=== PATIENT | female | born 1950 | race Caucasian/White ===

== ENCOUNTER 2017-07-30 08:39 | Emergency (ER) | payer MEDICARE, MEDICAID ==
[~2017-07-30] VITALS: Ht 162.6 cm; Wt 110.0 kg
[~2017-07-30 08:39] MED LIST: ACTOS30 MG OR; ALBUTEROL90 MCG IN; ASPIR-8181 MG OR; CELEBREX200 MG OR; CIPROFLOXACN500 MG PO; DECO OR; FISH OIL OR; FLEXERIL OR; GEMFIBROZIL600 MG OR; GLUCOVANCE5 MG/500 M OR; HYDROCHLOROT12.5 MG PO; JANUVIA100 MG PO; LEVEMIR FL100 UNIT/M SC; LIDODERM5 % EX; LISINOP/HCTZ1 TA1 OR; LISINOPRIL10 MG PO; LORTAB 5 OR; LORTAB5 PO; MECLIZINE25 MG PO; METFORMIN500 MG PO; METOPROLOL50 M1 PO; MULTI VIT OR; PAXIL CR25 MG OR; PRILOSEC20 MG PO; PYRIDIUM200 MG PO; SIMVASTATIN40 MG PO; SIMVASTATIN80 MG OR; TRAMADOL HCL50 MG OR; VITAMIN B-1250 MCG OR; VITAMIN B-150 MG OR; ZOFRAN ODT4 MG PO; ZOFRAN4 MG/TAB PO; [UNRECOGNIZED DRUG - OTHER]
[2017-07-30 09:31] LABS: HEMATOCRIT 43.3 % (37.0-47.0); HEMOGLOBIN 13.8 g/dl (12.0-16.0); IMMATURE GRANULOCYTES 0.2 % (0.0-1.0); MEAN CELL VOLUME 88.4 fL CALC (80.0-100.0); MEAN CORPUSCULAR HGB 28.2 pG CALC (26.0-32.0); MEAN CORPUSCULAR HGB CONC 31.9 g/L CALC (32.0-36.0); NEUT# 6.83 thou/uL (2.00-7.15); RED BLOOD COUNT 4.9 mill/uL (4.20-5.60); RED CELL DISTRI WIDTH 14.8 % (11.5-15.5); URINE BILIRUBIN - DIPSTICK NEGATIVE (NEGATIVE); URINE BLOOD DIPSTICK LARGE (NEGATIVE); URINE COLOR YELLOW; URINE GLUCOSE - DIPSTICK NEGATIVE (NEGATIVE); URINE KETONE NEGATIVE (NEGATIVE); URINE LEUK ESTERASE NEGATIVE (NEGATIVE); URINE NITRITE - DIPSTICK NEGATIVE (Negative); URINE PH 5.5 (4.5-8.0); URINE PROTEIN - DIPSTICK NEGATIVE (NEG-TRACE); URINE UROBILINOGEN - DIPSTICK 0.2 E.U./dL (0.2)
[2017-07-30 09:32] LABS: URINE CLARITY SL CLOUDY
[2017-07-30 09:50] LABS: ALBUMIN 4.1 g/dL (3.2-5.0); ALKALINE PHOSPHATASE 111 u/l (38-126); ANION GAP 17 (6-22 (CALC)); BILIRUBIN, TOTAL 0.7 mg/dL (0.0-1.4); BUN 16 mg/dL (8-23); BUN/CREATININE RATIO 20 (12-20 (CALC)); CARBON DIOXIDE 25 mmol/l (22-30); CHLORIDE 103 mmol/l (95-108); CREATININE 0.8 mg/dL (0.5-1.0); GFR > 60 ML/MIN (>=60 (CALC)); GFR FOR AFR.AMER. > 60 ML/MIN (>=60 (CALC)); LIPASE 154 u/l (23-300); SGOT/AST 31 u/l (9-36); SGPT/ALT 31 u/l (11-66); SODIUM 142 mmol/l (137-146)
[2017-07-30 13:22] VITALS: BP 118/68
== END 2017-07-30 13:29 | disposition home or self-care (01) ==
LOC: ED 08:39
PROVIDERS: Family Medicine
DX: K52.9 Noninfective gastroenteritis and colitis, unspecified (principal); I10 Essential (primary) hypertension; E11.9 Type 2 diabetes mellitus without complications; I25.2 Old myocardial infarction
CPT/HCPCS: Q9967

== ENCOUNTER → 2018-08-01 | Outpatient (REF) | payer MEDICARE, MEDICAID ==
[2018-08-01 09:28] LABS: HEMATOCRIT 44.4 % (37.0-47.0); HEMOGLOBIN 14.2 g/dl (12.0-16.0); MEAN CELL VOLUME 88.8 fL CALC (80.0-100.0); MEAN CORPUSCULAR HGB 28.4 pG CALC (26.0-32.0); RED CELL DISTRI WIDTH 15.5 % (11.5-15.5)
[2018-08-01 10:05] LABS: ALKALINE PHOSPHATASE 98 u/l (38-126); ANION GAP 14 (6-22 (CALC)); BILIRUBIN, TOTAL 0.7 mg/dL (0.0-1.4); BUN 15 mg/dL (8-23); BUN/CREATININE RATIO 20 (12-20 (CALC)); CALCULATED LDLCHOLESTEROL 80 mg/dL (62-129 (CALC)); CARBON DIOXIDE 31 mmol/l (22-30); CHLORIDE 100 mmol/l (95-108); CHOLESTEROL HDL RATIO 3.4 (<4.4 (CALC)); CREATININE 0.8 mg/dL (0.5-1.0); GFR > 60 ML/MIN (>=60 (CALC)); GFR FOR AFR.AMER. > 60 ML/MIN (>=60 (CALC)); HDL CHOLESTEROL 48 mg/dL (>=40); POTASSIUM 4.3 mmol/l (3.5-5.1); SGOT/AST 23 u/l (9-36); SODIUM 140 mmol/l (137-146); TOTAL CHOLESTEROL 163 mg/dl (0-199); TOTAL PROTEIN 6.9 g/dL (6.3-8.2); TOTAL TRIGLYCERIDES 177 mg/dl (30-149); VLDL CHOLESTROL 35 mg/dl (1-41 (CALC))
[2018-08-01 10:30] LABS: TSH, 3RD GENERATION 0.94 uIU/mL (0.47 - 4.68)
== END | disposition home or self-care (01) ==
LOC: LAB 08:41
PROVIDERS: ATTEND Internal Medicine
DX: E11.42 Type 2 diabetes mellitus with diabetic polyneuropathy (principal)

== ENCOUNTER → 2018-09-03 | Outpatient (REF) | payer MEDICARE, MEDICAID | END | disposition home or self-care (01) | LOC: MAMMO 13:16 | PROVIDERS: ATTEND Internal Medicine | DX: Z12.31 Encounter for screening mammogram for malignant neoplasm of breast (principal) ==

== ENCOUNTER 2019-08-17 19:20 | Emergency (ER) | payer MEDICARE, MEDICAID ==
[~2019-08-17] VITALS: Ht 162.6 cm; Wt 120.5 kg
[2019-08-17] MEDS ORDERED: ATORVASTATIN CA20 MG PO (20:48)
[2019-08-17] MEDS ORDERED: MELOXICAM7.5 MG PO (20:48)
[2019-08-17] MEDS ORDERED: GABAPENTIN300 M2 PO (20:49)
[2019-08-17] MEDS ORDERED: MYRBETRIQ25 MG PO (20:49)
[2019-08-17] MEDS ORDERED: TRESIBA FL200 UNIT/M SC (20:49)
[2019-08-17] MEDS ORDERED: METOPROLOL SUCC50 MG PO (20:49)
[2019-08-17] MEDS ORDERED: METFORMIN HCL500 M1 PO (20:50)
[2019-08-17] MEDS ORDERED: LISINOP/HCTZ1 TA1 PO (20:50)
[2019-08-17] MEDS ORDERED: MONTELUKAST SOD10 MG PO (20:51)
[2019-08-17] MEDS ORDERED: OMEPRAZOLE DR20 MG PO (20:51)
[2019-08-17] MEDS ORDERED: DIFLUCAN100 M1 PO (20:59)
[2019-08-17] MEDS ORDERED: BACTRIM DS1 TAB PO (20:59)
[2019-08-17] MEDS ORDERED: BACTROBAN TOP (20:59)
[2019-08-17] MEDS ORDERED: KEFLEX500 M1 PO (20:59)
[2019-08-17] MEDS ORDERED: NYSTOP100000 UNI TOP (20:59)
[2019-08-17 21:10] VITALS: BP 128/70
== END 2019-08-17 21:10 | disposition home or self-care (01) ==
LOC: ED 19:20
DX: L02.416 Cutaneous abscess of left lower limb (principal); L02.415 Cutaneous abscess of right lower limb; B37.2 Candidiasis of skin and nail; I10 Essential (primary) hypertension; E11.9 Type 2 diabetes mellitus without complications; I25.2 Old myocardial infarction; Z79.4 Long term (current) use of insulin

== ENCOUNTER 2020-06-17 16:41 | Inpatient (IN) | payer MEDICARE, MEDICAID ==
[~2020-06-17] VITALS: Ht 162.6 cm; Wt 118.4 kg
[~2020-06-17 16:41] MED LIST changes: +ATORVASTATIN CA20 MG PO; +BACTRIM DS1 TAB PO; +BACTROBAN TOP; +DIFLUCAN100 M1 PO; +GABAPENTIN300 M2 PO; +KEFLEX500 M1 PO; +LISINOP/HCTZ1 TA1 PO; +MELOXICAM7.5 MG PO; +METFORMIN HCL500 M1 PO; +METOPROLOL SUCC50 MG PO; +MONTELUKAST SOD10 MG PO; +MYRBETRIQ25 MG PO; +NYSTOP100000 UNI TOP; +OMEPRAZOLE DR20 MG PO; +TRESIBA FL200 UNIT/M SC
[2020-06-17 18:11] LABS: HEMATOCRIT 44.8 % (37.0-47.0); HEMOGLOBIN 13.8 g/dl (12.0-16.0); IMMATURE GRANULOCYTES 0.4 % (0.0-5.0); MEAN CELL VOLUME 86.3 fL CALC (80.0-100.0); MEAN CORPUSCULAR HGB 26.6 pG CALC (26.0-32.0); MEAN CORPUSCULAR HGB CONC 30.8 g/dL CAL (32.0-36.0); NEUT# 5.54 thou/uL (2.00-7.15); RED BLOOD COUNT 5.19 mill/uL (4.20-5.60); RED CELL DISTRI WIDTH 16.7 % (11.5-15.5)
[2020-06-17 18:26] LABS: ALKALINE PHOSPHATASE 90 u/l (38-126); ANION GAP 10 (6-22 (CALC)); BUN 21 mg/dL (8-23); BUN/CREATININE RATIO 22 (12-20 (CALC)); C-REACTIVE PROTEIN 6.4 mg/dL (0-0.9); CARBON DIOXIDE 37 mmol/l (22-30); CHLORIDE 92 mmol/l (95-108); GFR 55 ML/MIN (>=60 (CALC)); GFR FOR AFR.AMER. > 60 ML/MIN (>=60 (CALC)); POTASSIUM 4.4 mmol/l (3.5-5.1); SGOT/AST 57 u/l (9-36); SODIUM 133 mmol/l (137-146)
[2020-06-17 18:27] LABS: BILIRUBIN, TOTAL 0.8 mg/dL (0.0-1.4)
[2020-06-17 20:43] VITALS: BP 122/63
[2020-06-18] VITALS (7 sets, daily range): BP systolic 96–140; BP diastolic 49–71
[2020-06-18 05:39] LABS: HEMATOCRIT 43.3 % (37.0-47.0); HEMOGLOBIN 13.3 g/dl (12.0-16.0); IMMATURE GRANULOCYTES 0.4 % (0.0-5.0); MEAN CELL VOLUME 87.3 fL CALC (80.0-100.0); MEAN CORPUSCULAR HGB 26.8 pG CALC (26.0-32.0); MEAN CORPUSCULAR HGB CONC 30.7 g/dL CAL (32.0-36.0); NEUT# 5.18 thou/uL (2.00-7.15); RED BLOOD COUNT 4.96 mill/uL (4.20-5.60); RED CELL DISTRI WIDTH 16.7 % (11.5-15.5)
[2020-06-18 06:02] LABS: ALBUMIN 3.3 g/dL (3.2-5.0); BILIRUBIN, TOTAL 0.5 mg/dL (0.0-1.4); CREATININE 1.1 mg/dL (0.5-1.0); POTASSIUM 4.9 mmol/l (3.5-5.1); TOTAL PROTEIN 6.4 g/dL (6.3-8.2)
[2020-06-19 04:00] VITALS: BP 98/63
[2020-06-19 07:54] VITALS: BP 121/72
[2020-06-19 11:30] VITALS: BP 105/70
[2020-06-19 15:23] VITALS: BP 100/60
[2020-06-19 19:35] VITALS: BP 107/64
[2020-06-20 00:05] VITALS: BP 93/60
[2020-06-20 04:20] VITALS: BP 110/59
[2020-06-20 05:51] LABS: HEMATOCRIT 39.7 % (37.0-47.0); HEMOGLOBIN 11.9 g/dl (12.0-16.0); IMMATURE GRANULOCYTES 0.5 % (0.0-5.0); MEAN CELL VOLUME 88.6 fL CALC (80.0-100.0); MEAN CORPUSCULAR HGB 26.6 pG CALC (26.0-32.0); NEUT# 3.69 thou/uL (2.00-7.15); RED BLOOD COUNT 4.48 mill/uL (4.20-5.60); RED CELL DISTRI WIDTH 16.5 % (11.5-15.5)
[2020-06-20 06:18] LABS: ALBUMIN 3.2 g/dL (3.2-5.0); ALKALINE PHOSPHATASE 80 u/l (38-126); ANION GAP 12 (6-22 (CALC)); BUN 28 mg/dL (8-23); BUN/CREATININE RATIO 32 (12-20 (CALC)); C-REACTIVE PROTEIN 1.8 mg/dL (0-0.9); CARBON DIOXIDE 28 mmol/l (22-30); CHLORIDE 103 mmol/l (95-108); CREATININE 0.9 mg/dL (0.5-1.0); GFR > 60 ML/MIN (>=60 (CALC)); GFR FOR AFR.AMER. > 60 ML/MIN (>=60 (CALC)); POTASSIUM 4.8 mmol/l (3.5-5.1); SGOT/AST 36 u/l (9-36); SODIUM 137 mmol/l (137-146); TOTAL PROTEIN 6.1 g/dL (6.3-8.2)
[2020-06-20 06:21] LABS: BILIRUBIN, TOTAL 0.2 mg/dL (0.0-1.4)
[2020-06-20 08:50] VITALS: BP 102/55
[2020-06-20 10:20] VITALS: BP 125/60
[2020-06-20 15:30] VITALS: BP 121/57
[2020-06-20 19:20] VITALS: BP 132/76
[2020-06-21 04:00] VITALS: BP 133/71
[2020-06-21 05:18] LABS: HEMATOCRIT 40.4 % (37.0-47.0); HEMOGLOBIN 11.9 g/dl (12.0-16.0); IMMATURE GRANULOCYTES 0.5 % (0.0-5.0); MEAN CELL VOLUME 88.6 fL CALC (80.0-100.0); MEAN CORPUSCULAR HGB 26.1 pG CALC (26.0-32.0); MEAN CORPUSCULAR HGB CONC 29.5 g/dL CAL (32.0-36.0); NEUT# 4.39 thou/uL (2.00-7.15); RED BLOOD COUNT 4.56 mill/uL (4.20-5.60); RED CELL DISTRI WIDTH 16.5 % (11.5-15.5)
[2020-06-21 05:39] LABS: ANION GAP 11 (6-22 (CALC)); BUN 32 mg/dL (8-23); BUN/CREATININE RATIO 39 (12-20 (CALC)); CARBON DIOXIDE 28 mmol/l (22-30); CHLORIDE 102 mmol/l (95-108); CREATININE 0.8 mg/dL (0.5-1.0); GFR > 60 ML/MIN (>=60 (CALC)); GFR FOR AFR.AMER. > 60 ML/MIN (>=60 (CALC)); POTASSIUM 4.8 mmol/l (3.5-5.1); SODIUM 136 mmol/l (137-146)
[2020-06-21 07:35] VITALS: BP 119/65
[2020-06-21 16:00] VITALS: BP 127/69
[2020-06-21 20:00] VITALS: BP 150/81
[2020-06-22 04:00] VITALS: BP 135/74
[2020-06-22 05:56] LABS: HEMATOCRIT 41.4 % (37.0-47.0); HEMOGLOBIN 12.7 g/dl (12.0-16.0); IMMATURE GRANULOCYTES 0.4 % (0.0-5.0); MEAN CELL VOLUME 87.9 fL CALC (80.0-100.0); MEAN CORPUSCULAR HGB CONC 30.7 g/dL CAL (32.0-36.0); NEUT# 5.58 thou/uL (2.00-7.15); RED BLOOD COUNT 4.71 mill/uL (4.20-5.60); RED CELL DISTRI WIDTH 16.5 % (11.5-15.5)
[2020-06-22 06:21] LABS: ALBUMIN 3.2 g/dL (3.2-5.0); ALKALINE PHOSPHATASE 73 u/l (38-126); ANION GAP 10 (6-22 (CALC)); BUN 27 mg/dL (8-23); BUN/CREATININE RATIO 36 (12-20 (CALC)); C-REACTIVE PROTEIN 0.7 mg/dL (0-0.9); CARBON DIOXIDE 29 mmol/l (22-30); CHLORIDE 102 mmol/l (95-108); CREATININE 0.7 mg/dL (0.5-1.0); GFR > 60 ML/MIN (>=60 (CALC)); GFR FOR AFR.AMER. > 60 ML/MIN (>=60 (CALC)); SGOT/AST 38 u/l (9-36); SODIUM 137 mmol/l (137-146); TOTAL PROTEIN 6.3 g/dL (6.3-8.2)
[2020-06-22 06:28] LABS: BILIRUBIN, TOTAL 0.3 mg/dL (0.0-1.4)
[2020-06-22 08:01] VITALS: BP 155/73
[2020-06-22 09:27] VITALS: BP 155/73
[2020-06-22] MEDS ORDERED: ZITHROMAX250 MG PO (12:24)
[2020-06-22] MEDS ORDERED: DEXAMETHASON6 MG PO (12:24)
[2020-06-22] MEDS ORDERED: OXY1 (12:25)
== END 2020-06-22 15:51 | disposition home or self-care (01) | DRG 177 ==
LOC: ED 16:41 → ED-I 18:19 → ED 18:47 → MS2 18:48
PROVIDERS: Family Medicine; Nurse Practitioner; Physician Assistant; ADMIT Internal Medicine; ATTEND Internal Medicine
PROC: XW033E5 Introduction of Remdesivir Anti-infective into Peripheral Vein, Percutaneous Approach, New Technology Group 5 (ICD-10-PCS; principal; 2020-06-18)
DX: U07.1 COVID-19 (principal); J12.82 Pneumonia due to coronavirus disease 2019; J96.01 Acute respiratory failure with hypoxia; D64.9 Anemia, unspecified; R21 Rash and other nonspecific skin eruption; I10 Essential (primary) hypertension; E11.40 Type 2 diabetes mellitus with diabetic neuropathy, unspecified; J44.9 Chronic obstructive pulmonary disease, unspecified; E78.5 Hyperlipidemia, unspecified; M19.90 Unspecified osteoarthritis, unspecified site; Z79.1 Long term (current) use of non-steroidal anti-inflammatories (NSAID); Z79.4 Long term (current) use of insulin; Z79.899 Other long term (current) drug therapy; Z88.5 Allergy status to narcotic agent; Z87.891 Personal history of nicotine dependence
CPT/HCPCS: J1650

== ENCOUNTER 2022-03-02 16:36 | Emergency (ER) | payer MEDICARE, MEDICAID ==
[~2022-03-02] VITALS: Ht 162.6 cm; Wt 115.0 kg
[~2022-03-02 16:36] MED LIST changes: +DEXAMETHASON6 MG PO; +OXY1; +ZITHROMAX250 MG PO
[2022-03-02 17:33] LABS: HEMATOCRIT 40.3 % (37.0-47.0); HEMOGLOBIN 12.4 g/dl (12.0-16.0); IMMATURE GRANULOCYTES 0.2 % (0.0-5.0); MEAN CELL VOLUME 77.8 fL CALC (80.0-100.0); MEAN CORPUSCULAR HGB 23.9 pG CALC (26.0-32.0); MEAN CORPUSCULAR HGB CONC 30.8 g/dL CAL (32.0-36.0); NEUT# 10.58 thou/uL (2.00-7.15); RED BLOOD COUNT 5.18 mill/uL (4.20-5.60); RED CELL DISTRI WIDTH 18.7 % (11.5-15.5)
[2022-03-02 17:48] LABS: ALBUMIN 4.4 g/dL (3.2-5.0); ALKALINE PHOSPHATASE 110 u/l (38-126); BILIRUBIN, TOTAL 0.4 mg/dL (0.0-1.4); BUN 16 mg/dL (8-23); BUN/CREATININE RATIO 21 (12-20 (CALC)); CARBON DIOXIDE 29 mmol/l (22-30); CREATININE 0.8 mg/dL (0.5-1.0); GFR FOR AFR.AMER. > 60 ML/MIN (>=60 (CALC)); GFR OTHER RACES > 60 ML/MIN (>=60 (CALC)); POTASSIUM 4.4 mmol/l (3.5-5.1); SGOT/AST 35 u/l (9-36); SODIUM 138 mmol/l (137-146); TOTAL PROTEIN 7.8 g/dL (6.3-8.2)
[2022-03-02 17:50] LABS: ANION GAP 17 (6-22 (CALC)); CHLORIDE 96 mmol/l (95-108)
[2022-03-02 18:06] VITALS: BP 151/84
[2022-03-02 20:18] LABS: URINE BILIRUBIN - DIPSTICK NEGATIVE (NEGATIVE); URINE BLOOD DIPSTICK NEGATIVE (NEGATIVE); URINE COLOR YELLOW; URINE GLUCOSE - DIPSTICK NEGATIVE (NEGATIVE); URINE KETONE NEGATIVE (NEGATIVE); URINE LEUK ESTERASE NEGATIVE (NEGATIVE); URINE NITRITE - DIPSTICK NEGATIVE (Negative); URINE PROTEIN - DIPSTICK NEGATIVE (NEG-TRACE); URINE UROBILINOGEN - DIPSTICK 0.2 E.U./dL (0.2)
[2022-03-02] MEDS ORDERED: MECLIZINE25 M1 PO (20:34)
[2022-03-02] MEDS ORDERED: ONDANSETRON4 MG PO (20:34)
== END 2022-03-02 20:55 | disposition home or self-care (01) ==
LOC: ED 16:36
PROVIDERS: Family Medicine
DX: R42 Dizziness and giddiness (principal); I10 Essential (primary) hypertension; E11.9 Type 2 diabetes mellitus without complications; Z79.84 Long term (current) use of oral hypoglycemic drugs; Z79.4 Long term (current) use of insulin

== ENCOUNTER 2022-08-24 08:08 | Emergency (ER) | payer MEDICARE, MEDICAID ==
[2022-08-24] VITALS (12 sets, daily range): BP systolic 111–153; BP diastolic 59–92
[~2022-08-24] VITALS: Ht 162.6 cm; Wt 113.6 kg
[~2022-08-24 08:08] MED LIST changes: +MECLIZINE25 M1 PO; +ONDANSETRON4 MG PO
[2022-08-24] MEDS ORDERED: ZOFRAN4 MG/TAB PO (12:17)
[2022-08-28] MEDS ORDERED: ASPIRIN81 MG PO (15:55)
== END 2022-08-24 12:38 | disposition home or self-care (01) ==
LOC: ED 08:08
DX: K52.9 Noninfective gastroenteritis and colitis, unspecified (principal); I10 Essential (primary) hypertension; E11.9 Type 2 diabetes mellitus without complications; Z79.84 Long term (current) use of oral hypoglycemic drugs; Z79.4 Long term (current) use of insulin

== ENCOUNTER 2024-05-13 02:35 | Emergency (ER) | payer MEDICARE, MEDICAID ==
[~2024-05-13] VITALS: Ht 162.6 cm; Wt 85.0 kg
[~2024-05-13 02:35] MED LIST changes: +ASPIRIN81 MG PO
[2024-05-13] MEDS ORDERED: SODIUM CHLORIDE 0.9% 1,000 ML IV STA (02:46)
[2024-05-13 02:47] VITALS: BP 113/67
[2024-05-13] MEDS ORDERED: PROMETHAZINE HCL 25 MG/ML AMP IV ONE (02:50)
[2024-05-13 03:01] VITALS: BP 119/71
[2024-05-13 03:05] LABS: BASO% 0.3 % (0-3); EOS% 1.4 % (0-8); HEMATOCRIT 38.9 % (37.0-47.0); HEMOGLOBIN 11.6 g/dl (12.0-16.0); IMMATURE GRANULOCYTES 0.4 % (0.0-5.0); LYMPH% 15.9 % (15-41); MEAN CELL VOLUME 75.1 fL CALC (80.0-100.0); MEAN CORPUSCULAR HGB 22.4 pG CALC (26.0-32.0); MEAN CORPUSCULAR HGB CONC 29.8 g/dL CAL (32.0-36.0); MONO% 8.9 % (2-13); NEUT# 8.2 thou/uL (2.00-7.15); NEUT% 73.1 % (42-76); RED BLOOD COUNT 5.18 mill/uL (4.20-5.60); RED CELL DISTRI WIDTH 20.6 % (11.5-15.5)
[2024-05-13 03:13] LABS: ALKALINE PHOSPHATASE 113 u/l (38-126); ANION GAP 13 (6-22 (CALC)); BILIRUBIN, TOTAL 0.5 mg/dL (0.02-1.3); BUN 17 mg/dL (8-23); BUN/CREATININE RATIO 18 (12-20 (CALC)); CARBON DIOXIDE 30 mmol/l (22-30); CHLORIDE 96 mmol/l (95-108); CREATININE 0.9 mg/dL (0.5-1.0); ESTIMATED GFR 68 ML/MIN (>=90 (CALC)); LIPASE 217 u/l (23-300); SGOT/AST 41 u/l (9-36); SODIUM 135 mmol/l (137-146); TOTAL PROTEIN 7.7 g/dL (6.3-8.2)
[2024-05-13 03:16] LABS: POTASSIUM 3.9 mmol/l (3.5-5.1)
[2024-05-13] MEDS ORDERED: LACTATED RINGER'S 1,000 ML IV ONE (03:45)
[2024-05-13] MEDS ORDERED: PROMETHAZINE HY25 M1 PO (05:16)
[2024-05-13 06:50] VITALS: BP 119/71
== END 2024-05-13 06:51 | disposition home or self-care (01) ==
LOC: ED 02:35
PROVIDERS: Family Medicine
DX: K52.9 Noninfective gastroenteritis and colitis, unspecified (principal); E11.9 Type 2 diabetes mellitus without complications; I10 Essential (primary) hypertension; J44.9 Chronic obstructive pulmonary disease, unspecified; F41.9 Anxiety disorder, unspecified; Z87.442 Personal history of urinary calculi; Z79.4 Long term (current) use of insulin; Z79.84 Long term (current) use of oral hypoglycemic drugs; Z20.822 Contact with and (suspected) exposure to COVID-19